=== PATIENT | female | born 1935 | race Caucasian/White ===

== ENCOUNTER 2018-03-27 15:32 | Inpatient (IN) | payer OTHER, MEDICARE ==
[~2018-03-27] VITALS: Ht 152.4 cm; Wt 52.2 kg
[2018-03-27 15:32] VITALS: BP_SYST 60
[2018-03-27] MEDS ORDERED: NACL 0.9% 1,000 ML IV ONE ×2 (16:00→16:30)
[2018-03-27 16:14] LABS: ANION GAP 24 (5-15); CALCIUM 8.6 mg/dL (8.4-11.0); CHLORIDE 98 mmol/L (98-107); CREATININE 2.23 mg/dL (0.55-1.30); POTASSIUM 5.3 mmol/L (3.5-5.1); SODIUM SERUM 137 mmol/L (136-145); UREA NITROGEN, BLOOD 35 mg/dL (8-21)
[2018-03-27 16:18] LABS: HEMATOCRIT 56.1 % (36-48); HEMOGLOBIN 18.2 g/dL (12.0-16.0); MEAN CORPUSCULAR HEMOGLOBIN 31 pg (27-31); MEAN CORPUSCULAR HGB CONC 32 % (32-36); MEAN CORPUSCULAR VOLUME 96 fL (79.0-98.0); PLATELET COUNT (AUTO) 81 K/uL (130-430); RED BLOOD CELL COUNT(AUTO) 5.84 MIL/uL (4.2-6.2); WHITE BLOOD COUNT (AUTO) 14.8 K/uL (4.8-10.8)
[2018-03-27 16:22] LABS: GLUCOSE 35 mg/dL (70-99)
[2018-03-27 16:30] LABS: ALANINE AMINOTRANSFERASE 315 U/L (12-78); ALBUMIN 2.2 g/dL (3.4-4.8); ASPARTATE AMINOTRANSFERASE 690 U/L (10-37); INR > 9.0 (0.8-1.2); TOTAL BILIRUBIN 3.5 mg/dL (0.0-1.0)
[2018-03-27] MEDS ORDERED: DEXTROSE 50% JECT 50 ML DISP.SYRIN ONE (16:30)
[2018-03-27] MEDS ORDERED: DEXTROSE 50% JECT 50 ML DISP.SYRIN IVP ONE (16:30)
[2018-03-27] MEDS ORDERED: cefTRIAXone 1 GM IVPB PREMIX 50 ML IV ONE (16:45)
[2018-03-27 16:47] LABS: BILIRUBIN,URINE NEGATIVE (NEGATIVE); BLOOD, URINE TRACE (NEGATIVE); CLARITY/URINE SL CLOUDY (CLEAR); COLOR,URINE YELLOW (YELLOW); GLUCOSE,URINE NEGATIVE (NEGATIVE); KETONES,URINE NEGATIVE (NEGATIVE); LEUKOCYTE ESTERASE ,URINE NEGATIVE (NEGATIVE); NITRITE, URINE NEGATIVE (NEGATIVE); PROTEIN URINE 1+ (NEGATIVE); UROBILINOGEN,URINE 0.2 (0.2-1.0)
[2018-03-27 16:55] LABS: BACTERIA,URINE MANY /HPF (None Seen); RBC,URINE 0-3 /HPF (0-3); URINE AMORPHOUS URATE 1+ /HPF (None Seen); WBC,URINE 0-3 /HPF (0-3)
[2018-03-27] MEDS ORDERED: SODIUM BICARBONATE 8.4% JECT 50 MEQ/50 ML SYRINGE IVP ONE (17:00)
[2018-03-27] MEDS ORDERED: AZOEYE (17:08)
[2018-03-27] MEDS ORDERED: LOVA10TA55 PO (17:08)
[2018-03-27] MEDS ORDERED: LISI1TAB9 PO (17:08)
[2018-03-27] MEDS ORDERED: POTA-88 PO (17:08)
[2018-03-27] MEDS ORDERED: MONT10TA25 PO (17:08)
[2018-03-27] MEDS ORDERED: NIVO40VI IV (17:08)
[2018-03-27] MEDS ORDERED: FURO10VI27 IVP (17:08)
[2018-03-27] MEDS ORDERED: MULT-1089 PO (17:08)
[2018-03-27] MEDS ORDERED: METO25TA6 PO (17:08)
[2018-03-27] MEDS ORDERED: IPRATROPIUM BROM 0.5 MG/2.5 ML VIAL.NEB (ATROVENT) INH PRN (17:15)
[2018-03-27] MEDS ORDERED: ALBUTEROL SULFATE 0.083% 2.5 MG/3 ML VIAL.NEB INH PRN (17:15)
[2018-03-27] MEDS ORDERED: NACL 0.9% 1,000 ML IV SCH ×2 (18:25→20:15)
[2018-03-27 18:36] VITALS: BP_SYST 84
[2018-03-27 18:41] VITALS: BP_SYST 84
[2018-03-27 18:45] LABS: BAND % (MANUAL) 17 % (0-6); BASOPHILS % (MANUAL) 0 % (0-2); EOSINOPHILS % (MANUAL) 0 % (0-7); LYMPHOCYTES % (MANUAL) 7 % (20-46); MONOCYTES % (MANUAL) 4 % (0-11)
[2018-03-27] MEDS ORDERED: ALBUTEROL SULFATE 0.083% 2.5 MG/3 ML VIAL.NEB INH SCH (19:00)
[2018-03-27] MEDS ORDERED: IPRATROPIUM BROM 0.5 MG/2.5 ML VIAL.NEB (ATROVENT) INH SCH (19:00)
[2018-03-27 21:47] VITALS: BP_SYST 84
[2018-03-27] MEDS ORDERED: D5/0.45 NS 1,000 ML IV SCH (22:15)
== END 2018-03-27 23:00 | disposition expired | DRG 291 ==
LOC: SED 15:32 → SMU 17:10
PROVIDERS: ADMIT Internal Medicine Hospice and Palliative Medicine; ATTEND Internal Medicine Hospice and Palliative Medicine
PROC: 5A09357 Assistance with Respiratory Ventilation, Less than 24 Consecutive Hours, Continuous Positive Airway Pressure (ICD-10-PCS; principal; 2018-03-27)
DX: R57.9 Shock, unspecified (principal); J96.91 Respiratory failure, unspecified with hypoxia; C34.90 Malignant neoplasm of unspecified part of unspecified bronchus or lung; Z66 Do not resuscitate; Z51.5 Encounter for palliative care; I27.20 Pulmonary hypertension, unspecified; I46.9 Cardiac arrest, cause unspecified; Z85.118 Personal history of other malignant neoplasm of bronchus and lung; Z86.73 Personal history of transient ischemic attack (TIA), and cerebral infarction without residual deficits; Z79.899 Other long term (current) drug therapy; Z91.041 Radiographic dye allergy status; Z92.25 Personal history of immunosuppression therapy
CPT/HCPCS: 36415; 36600; 71045; 80053; 81000-TC; 82803-TC; 82962; 83605; 84484; 85007; 85027; 85610-TC; 85730-TC; 87040-TC; 87086; 93005; 94640; 94660; 94760; 96361; 96365; 96375; 99291; J0696; J7030; J7613